=== PATIENT | female | born 1995 | race Caucasian/White ===

== ENCOUNTER 2016-12-06 20:48 | Emergency (ER) | END 2016-12-07 01:44 | disposition home or self-care (01) | DX: O20.9 Hemorrhage in early pregnancy, unspecified (principal); R10.2 Pelvic and perineal pain; Z3A.00 Weeks of gestation of pregnancy not specified | CPT/HCPCS: 36415; 76801; 76817; 81001; 84702; 85025; 86900; 86901; J7030; Z7502; Z7610 ==

== ENCOUNTER 2017-05-06 19:51 | Emergency (ER) | payer MEDICAID ==
[~2017-05-06] VITALS: Ht 167.6 cm; Wt 78.4 kg
[~2017-05-06 19:51] MED LIST: IBUP-1542 PO
[2017-05-06] MEDS ORDERED: SOD CHLORIDE 0.9% 1,000 ML IV STA (19:53)
[2017-05-06] MEDS ORDERED: HYDROmorphONE 1 MG/ML SYG IV STA ×3 (19:53→20:31)
[2017-05-06] MEDS ORDERED: ONDANSETRON 4 MG INJ IV STA (19:53)
[2017-05-06] MEDS ORDERED: LACTATED RINGER'S 1,000 ML IV STA (20:01)
[2017-05-06 20:02] VITALS: Ht 167.6 cm; Wt 78.4 kg
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
[2017-05-06 20:16] VITALS: BP 122/82; PULSE 83; RESP 18; TEMP 98.6
[2017-05-06 20:16] LABS: ABNORMAL IP MESSAGE 1; BASOPHIL # 0.1 10^3/ul (0.0-0.1); BASOPHILS % 0.4 % (0.0-2.0); EOSINOPHILS # 0.1 10^3/ul (0.0-0.5); EOSINOPHILS % 0.7 % (0.0-7.0); HEMATOCRIT 38.3 % (37.0-47.0); HEMOGLOBIN 12.9 g/dl (12.0-16.0); LYMPHOCYTES # 6.6 10^3/ul (0.8-2.9); MEAN CORPUSCULAR HEMOGLOBIN 29.6 pg (29.0-33.0); MEAN CORPUSCULAR HGB CONC 33.7 g/dl (32.0-37.0); MEAN CORPUSCULAR VOLUME 87.8 fl (82.0-101.0); MEAN PLATELET VOLUME 9.7 fl (7.4-10.4); MONOCYTE # 1.2 10^3/ul (0.3-0.9); MONOCYTES % 7.5 % (0.0-11.0); NEUTROPHIL # 7.4 10^3/ul (1.6-7.5); NEUTROPHILS % 48.1 % (39.0-77.0); PLATELET COUNT 352 10^3/UL (140-415); RED BLOOD COUNT 4.36 10^6/ul (4.20-5.40); RED CELL DISTRIBUTION WIDTH 12.9 % (11.5-14.5); WHITE BLOOD COUNT 15.3 10^3/ul (4.8-10.8)
[2017-05-06 20:18] LABS: POSITIVE DIFF @See below
[2017-05-06 20:25] LABS: CALCIUM 10.5 mg/dl (8.4-10.2); CREATININE 0.99 mg/dl (0.44-1.00); POTASSIUM 4.1 mmol/L (3.5-5.1)
== END 2017-05-06 20:45 | disposition short-term general hospital (02) ==
LOC: E/R 19:51
DX: T21.22XA Burn of second degree of abdominal wall, initial encounter (principal); T24.231A Burn of second degree of right lower leg, initial encounter; T24.232A Burn of second degree of left lower leg, initial encounter; X11.8XXA Contact with other hot tap-water, initial encounter; Y92.9 Unspecified place or not applicable
CPT/HCPCS: 36415; 80048; 84703; 85025; 96374; 96375; J1170; J2405; J7030; J7120; Z7502

== ENCOUNTER 2017-06-11 17:04 | Emergency (ER) | END 2017-06-11 20:32 | disposition home or self-care (01) ==

== ENCOUNTER 2017-06-21 08:47 | Emergency (ER) | END 2017-06-21 12:08 | disposition home or self-care (01) ==

== ENCOUNTER 2017-06-22 13:16 | Emergency (ER) | END 2017-06-22 17:02 | disposition home or self-care (01) ==

== ENCOUNTER 2018-04-16 12:26 | Emergency (ER) | END 2018-04-16 15:10 | disposition home or self-care (01) ==

== ENCOUNTER 2018-08-20 08:07 | Emergency (ER) | payer MEDICAID ==
[~2018-08-20] VITALS: Ht 167.6 cm; Wt 71.8 kg
[~2018-08-20 08:07] MED LIST changes: +IBUP800T48 PO; +ONDA4TAB14 PO
[2018-08-20 08:15] VITALS: Ht 167.6 cm; Wt 71.8 kg
[2018-08-20] MEDS ORDERED: ONDANSETRON (ODT) 4 MG TAB ODT STA (08:39)
[2018-08-20] MEDS ORDERED: HYDROCODONE/APAP (5/325) TAB PO ONE (09:00)
[2018-08-20] MEDS ORDERED: NAPR-985 PO (09:38)
[2018-08-20] MEDS ORDERED: TRAM50TA2 PO (09:38)
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
== END 2018-08-20 10:31 | disposition home or self-care (01) ==
LOC: FTE 08:07
DX: M25.562 Pain in left knee (principal)
CPT/HCPCS: 29505; 73562; Z7502; Z7610